=== PATIENT | female | born 1985 | race Caucasian/White ===

== ENCOUNTER 2016-11-11 14:51 | Emergency (ER) | payer MEDICAID ==
[~2016-11-11] VITALS: Ht 167.6 cm; Wt 68.5 kg
[2016-11-11 14:58] VITALS: BP 126/85
[2016-11-11] MEDS ORDERED: HYDROcodone/APAP 5/325 TABLET PO STA (15:50)
[2016-11-11] MEDS ORDERED: ONDANSETRON ODT 4 MG PO ONE (16:00)
[2016-11-11] MEDS ORDERED: LIDOCAINE 1%, 20ML ONE (16:07)
[2016-11-11] MEDS ORDERED: HYDROcodone/APAP 5/325 TABLET ONE (16:24)
[2016-11-11] MEDS ORDERED: ONDANSETRON ODT 4 MG ONE (16:24)
[2016-11-11] MEDS ORDERED: CEPHALEXIN 500 MG CAPSULE PO ONE (17:10)
[2016-11-11] MEDS ORDERED: CEPHALEXIN 500 MG CAPSULE ONE (17:17)
[2016-11-11] MEDS ORDERED: SULFAMETH./TRIMETHOPRIM DS 800MG/160MG TABLET ONE (17:17)
[2016-11-11] MEDS ORDERED: SULFAMETH./TRIMETHOPRIM DS 800MG/160MG TABLET PO ONE (17:30)
== END 2016-11-11 17:40 | disposition home or self-care (01) ==
LOC: ED 16:59
DX: S01.351A Open bite of right ear, initial encounter (principal); L03.221 Cellulitis of neck; L02.11 Cutaneous abscess of neck; W57.XXXA Bitten or stung by nonvenomous insect and other nonvenomous arthropods, initial encounter; Y93.89 Activity, other specified; Y92.89 Other specified places as the place of occurrence of the external cause; Y99.8 Other external cause status
CPT/HCPCS: 76536; 99284; Q0162

== ENCOUNTER 2017-01-02 00:07 | Inpatient (IN) | payer MEDICAID ==
[~2017-01-02] VITALS: Ht 167.6 cm; Wt 72.0 kg
[2017-01-02] MEDS ORDERED: SODIUM CHLORIDE 0.9% 1,000ML IVBOLUS ONE (01:30)
[2017-01-02] MEDS ORDERED: KETOROLAC 30 MG/1 ML IVPush ONE (01:30)
[2017-01-02] MEDS ORDERED: KETOROLAC 30 MG/1 ML ONE (01:42)
[2017-01-02 01:57] LABS: BLOOD UREA NITROGEN 15 mg/dL (7-18)
[2017-01-02] MEDS ORDERED: OMNIPAQUE 350 MG/ML, 100ML BOTTLE ONE (02:41)
[2017-01-02] MEDS ORDERED: SODIUM CHLORIDE 0.9% 1,000 ML IV ONE (03:03)
[2017-01-02] MEDS ORDERED: NS + 20MEQ KCL 1,000 ML IV SCH (03:12)
[2017-01-02] MEDS ORDERED: POLYETHYLENE GLYCOL 17 GM PACKET PO PRN (03:30)
[2017-01-02] MEDS ORDERED: CEFTAROLINE 600 MG in SODIUM CHLORIDE 0.9% 100 ML IV ONE (03:30)
[2017-01-02] MEDS ORDERED: ONDANSETRON 2MG/ML, 2ML IVPush PRN ×2 (03:30)
[2017-01-02] MEDS ORDERED: DOCUSATE 100 MG CAPSULE PO PRN (03:30)
[2017-01-02 06:25] VITALS: BP 111/72
[2017-01-02] MEDS: AMPICILLIN/SULBACTAM 3 GM in SODIUM CHLORIDE 0.9% 100 ML IV SCH ×3 (08:28→21:41)
[2017-01-02] MEDS: ENOXAPARIN 40 MG/0.4 ML SQ SCH (08:29)
[2017-01-02] MEDS: ACETAMINOPHEN 325 MG TABLET PO PRN ×2 (08:31→15:37)
[2017-01-02] MEDS ORDERED: PHARMACOKINETIC MONITORING MC PRN (11:00)
[2017-01-02] MEDS ORDERED: VANCOMYCIN PER PHARMACY MC PRN (11:00)
[2017-01-02] MEDS ORDERED: VANCOMYCIN 1,400 MG in SODIUM CHLORIDE 0.9% 250 ML IV SCH (11:00)
[2017-01-02] MEDS ORDERED: PHARMACOKINETIC CONSULTATION MC ONE (11:00)
[2017-01-02] MEDS: VANCOMYCIN 1,500 MG in SODIUM CHLORIDE 0.9% 250 ML IV SCH ×2 (12:56→22:59)
[2017-01-02 13:26] VITALS: BP 110/73
[2017-01-02] MEDS ORDERED: DIPHENHYDRAMINE 25 MG CAPSULE PO ONE (15:30)
[2017-01-02] MEDS: HYDROcodone/APAP 5/325 TABLET PO PRN (20:18)
[2017-01-02 21:36] VITALS: BP 109/78
[2017-01-03] MEDS ORDERED: DIPHENHYDRAMINE 50 MG/ML, 1ML IVPush ONE (02:00)
[2017-01-03 02:09] VITALS: BP 119/73
[2017-01-03] MEDS: AMPICILLIN/SULBACTAM 3 GM in SODIUM CHLORIDE 0.9% 100 ML IV SCH ×2 (03:39→09:31)
[2017-01-03] MEDS: HYDROcodone/APAP 5/325 TABLET PO PRN ×2 (03:45→08:00)
[2017-01-03 07:41] LABS: BLOOD UREA NITROGEN 8 mg/dL (7-18)
[2017-01-03] MEDS: ENOXAPARIN 40 MG/0.4 ML SQ SCH (07:48)
[2017-01-03 07:55] VITALS: BP 126/78
[2017-01-03] MEDS ORDERED: DIPHENHYDRAMINE 25 MG CAPSULE PO ONE (11:00)
[2017-01-03] MEDS: VANCOMYCIN 1,500 MG in SODIUM CHLORIDE 0.9% 250 ML IV SCH (11:28)
[2017-01-03 13:37] VITALS: BP 109/67
== END 2017-01-03 12:20 | disposition left against medical advice (07) | DRG 603 ==
LOC: ED 01:12 → EDIP 03:03 → SUATTDRO 03:11 → 3NE 05:11
PROVIDERS: ADMIT Family Medicine; ATTEND Family Medicine
DX: L03.211 Cellulitis of face (principal); F17.210 Nicotine dependence, cigarettes, uncomplicated; F15.10 Other stimulant abuse, uncomplicated; F11.10 Opioid abuse, uncomplicated; Z83.3 Family history of diabetes mellitus
CPT/HCPCS: 36415; 70487; 80048; 82040; 84703; 85025; 87040; 87070; 87077; 87147; 87186; 87205; 93005; 96361; 96374; J0295; J1885; J3370; J3480; Q9967; J1200; J7030; J7050; Q0163

== ENCOUNTER 2019-10-12 17:41 | Emergency (ER) | payer MEDICAID ==
[~2019-10-12] VITALS: Ht 167.6 cm; Wt 100.2 kg
[2019-10-12 17:43] VITALS: BP 130/85
--- NOTE | 2019-10-12 18:59 | NUR ---
PT AMBULATED TO ROOM WITH A STEADY GAIT. PT PLACED ON BP AND O2 MONITORING.
== END 2019-10-12 19:55 | disposition home or self-care (01) ==
LOC: ED 19:00
DX: K11.5 Sialolithiasis (principal); F17.200 Nicotine dependence, unspecified, uncomplicated
CPT/HCPCS: 99281